=== PATIENT | female | born 1975 | race Caucasian/White ===

== ENCOUNTER 2019-05-26 12:24 | Emergency (ER) | payer OTHER, SELFPAY ==
[2019-05-26 12:30] VITALS: BP 117/71; PULSE 73; RESP 18; TEMP 37.4; O2SAT 98
--- NOTE | 2019-05-26 12:56 | ED.URI ---
HPI - URI/Sore Throat General Chief Complaint: Upper Respiratory Infection Stated Complaint: sore throat and headache Related Data Home Medications Medication Instructions Recorded Confirmed No Home Medications 05/26/19 05/26/19 Allergies Allergy/AdvReac Type Severity Reaction Status Date / Time bacitracin Allergy Severe rash Verified 05/26/19 12:48 neomycin Allergy Severe rash Verified 05/26/19 12:48 polymyxin B Allergy Severe rash Verified 05/26/19 12:48 povidone-iodine Allergy Intermediate HIVES Verified 05/26/19 12:48 povidone Allergy Unknown Rash Verified 05/26/19 12:48 soap Allergy Unknown Rash Verified 05/26/19 12:48 Betadine Surgical scrub Allergy Intermediate Unknown Uncoded 05/26/19 12:48 PMFSH Past Medical History Medical History (Updated 05/26/19 @ 13:00 by SHAWNA Min) Acid reflux Anemia Encounter for gynecological examination (general) (routine) without abnormal findings Surgical History Surgical History H/O dilation and curettage H/O vaginal hysterectomy bilateral salpingectomy History of ankle surgery History of breast lump removal [place] teeth removed Social History Social History Smoking status: Never smoker Second hand tobacco smoke exposure: No Alcohol intake: never Course Vital Signs Vital signs: Vital Signs Temperature 37.4 C 05/26/19 12:30 Pulse Rate 73 05/26/19 12:30 Respiratory Rate 18 05/26/19 12:30 Blood Pressure 117/71 05/26/19 12:30 Pulse Oximetry 98 05/26/19 12:30 Temperature 37.4 C 05/26/19 12:30 Pulse Rate 73 05/26/19 12:30 Respiratory Rate 18 05/26/19 12:30 Blood Pressure 117/71 05/26/19 12:30 Pulse Oximetry 98 05/26/19 12:30 MDM - URI/Sore Throat Lab Data Labs: Influenza A Screen Negative Reference Range: Negative Influenza B Screen Negative Reference Range: Negative Strep Screen Presumptive Negative *(Reference Range: Negative)* Discharge Plan Discharge Clinical Impression: Upper respiratory infection, Viral infection Patient Disposition: Home, Self-Care Condition: Stable Instructions: Antibiotic Form Additional Instructions: *Throw away your current toothbrush and begin using a new toothbrush in 48 hours in order to prevent re-infection. If anyone else's toothbrush is stored near yours, they should also throw away their current toothbrush and begin using a new one. *Sanitize all reusable water bottles. *Do not share items with others. *Wash your hands often. Supportive care/Soothing measures/Pain relief: *Avoid cigarette smoke (including secondhand smoke) *Avoid acidic foods and beverages *Eat a soft diet for the next 3-4 days *Salt water gargles may alleviate some of the throat discomfort. Most recipes call for ? to ? teaspoon of salt per 8 ounces (approximately 240 mL) of warm water. *You can take tylenol or ibuprofen per the package instructions for pain/fever. *Sipping cold or warm beverages (eg, tea with honey or lemon) *Eat cold or frozen desserts (eg, ice cream, popsicles) *Sucking on ice *Sucking on hard candy Viruses are everywhere and can spread like wildfire. Sx can last up to 3-4 weeks. Treatment is aimed toward your specific symptoms. You must treat your symptoms in order to feel better while the virus runs it's course. Increase fluids especially water. Do not share items with others. You can take Tylenol or ibuprofen per the package instructions for pain/fever. Wash your hands as often as possible. Purchase and begin using an over the counter antihistamine/decongestant combo such as Zyrtec D, Debbie D, Claritin D as well as Flonase nasal spray per the package instructions. Salt water gargles may alleviate some of your throat discomfort. Go to the ER if your symptoms become worse of i
--- NOTE | 2019-06-03 09:34 | ED.GENADULT ---
HPI - General Adult General Chief complaint: Upper Respiratory Infection Stated complaint: sore throat and headache Source: patient and family History of Present Illness HPI narrative: Patient presents with a sore throat no trouble swallowing no drooling. Related Data Home Medications Medication Instructions Recorded Confirmed No Home Medications 05/26/19 05/26/19 Allergies Allergy/AdvReac Type Severity Reaction Status Date / Time bacitracin Allergy Severe rash Verified 05/26/19 12:48 neomycin Allergy Severe rash Verified 05/26/19 12:48 polymyxin B Allergy Severe rash Verified 05/26/19 12:48 povidone-iodine Allergy Intermediate HIVES Verified 05/26/19 12:48 povidone Allergy Unknown Rash Verified 05/26/19 12:48 soap Allergy Unknown Rash Verified 05/26/19 12:48 Betadine Surgical scrub Allergy Intermediate Unknown Uncoded 05/26/19 12:48 Review of Systems Review of Systems: Narrative: CONSTITUTIONAL: Denies chills, or sweats. Reports fever and generalized body aches EYES: Denies visual changes, redness, or discharge. ENT: Denies otalgia. Reports nasal congestion runny nose and sore throat CARDIOVASCULAR: Denies chest pain, palpitations, or edema. RESPIRATORY: Denies dyspnea. Reports occasional cough GASTROINTESTINAL: Denies abdominal pain, nausea, vomiting, or diarrhea. GENITOURINARY: Denies dysuria or hematuria. SKIN: Denies rash or itching. MUSCULOSKELETAL: Denies back pain, joint pain, or myalgia. Reports generalized body aches NEUROLOGIC: Denies headache, numbness, or weakness. PSYCHIATRIC: Denies anxiety or depression. [facility] Past Medical History Medical History Acid reflux Anemia Encounter for gynecological examination (general) (routine) without abnormal findings Surgical History Surgical History H/O dilation and curettage H/O vaginal hysterectomy bilateral salpingectomy History of ankle surgery History of breast lump removal [place] teeth removed Social History Social History Smoking status: Never smoker Second hand tobacco smoke exposure: No Alcohol intake: never Comments At time of signature, agree with nursing past medical, surgical, social and family history. There is no relevant family history pertinent to the presenting complaint Exam Narrative: Exam Narrative: The patient is a well-developed, well-nourished in no acute distress. SKIN: Skin is warm and dry without erythema, swelling or exudate. There is good turgor. No tenting. HEAD: Atraumatic. Normocephalic. No temporal or scalp tenderness. EYES: Moist and bright. Sclera and conjunctivae normal. No discharge. PERRLA. Extraocular motions intact. Gross visual acuity intact. EARS: Pinna is normal shape and contour. Clear external auditory canals. TM pearly miller with good cone of light, no erythema or suppuration. Bilateral cerumen noted no gross hearing deficit. NOSE: pink, moist mucosa with good air movement. Clear rhinorrhea without nasal flaring. Septum midline. Mouth: moist mucous membranes. THROAT; mild erythema noted to posterior oropharynx with moderate postnasal drainage. Without exudate or ulceration.. Uvula midline. Normal movement of soft palate. NECK: Supple and nontender with full range of motion without discomfort. No meningeal signs. LUNGS: Equal and bilateral breath sounds without wheezes, rales or rhonchi. CHEST: The chest wall is without retractions or use of accessory muscles. HEART: Has a regular rate and rhythm without murmur, gallops, click or rub. ABDOMEN: Soft, nontender with positive active bowel sounds. No rebound tenderness. EXTREMITIES: Without cyanosis, clubbing or edema. Equal 2+ distal pulses and 2 second capillary refill noted. NEUROLOGIC: alert, active, . The patient moves all extremities with normal muscle strength. Normal muscle tone is noted. Normal
== END 2019-05-26 13:00 | disposition home or self-care (01) ==
PROVIDERS: Emergency Provider Nurse Practitioner Family
DX: J06.9 Acute upper respiratory infection, unspecified (principal); B34.9 Viral infection, unspecified; K21.9 Gastro-esophageal reflux disease without esophagitis
CPT/HCPCS: 87081; 87804; 87880; 99213; G0463

== ENCOUNTER 2019-12-21 10:56 | Emergency (ER) | payer OTHER, SELFPAY ==
[2019-12-21 11:00] VITALS: BP 134/89; PULSE 71; RESP 18; TEMP 37.5; O2SAT 99
--- NOTE | 2019-12-21 11:12 | ED.GENADULT ---
HPI - General Adult General Chief complaint: Extremity Injury, Lower Stated complaint: left leg pain/numbness Time Seen by Provider: 12/21/19 11:13 Source: patient and RN notes reviewed Mode of arrival: ambulatory Limitations: no limitations History of Present Illness HPI narrative: 44-year-old female presents with complaints of left posterior thigh pain for the past 2 days. Ibuprofen 600mg last this morning at 06:45 with little relief. Currently on no medications. No known injury. Intermitting radiation of pain from LT buttock to knee. No numbness or tingling or bleeding. No swelling. No loss of mobility. Exacerbating factor consist of bearing weight to leg. Denies recent travel or long car rides. History of DVT or PE. No chest pain or dyspnea. LMP Hysterectomy 2017. Remains active. The patient reports she have not been diagnosed with COVID-19. The patient reports she is not waiting for the results of a COVID-19 lab test. The patient reports she do not have fever, chills, weakness, or fatigue. The patient reports she do not have a new or worsening cough or shortness of breath. The patient reports she do not have any rhinorrhea, congestion, loss of taste, sore throat, nausea, vomiting, abdominal pain, and diarrhea. Tolerating po intake well. Denies recent traveling. Denies concerns for COVID-19 or exposures been home with limited outdoor exposure except for essential household needs, student, and return home. At this time, patient is not suspected of having COVID-19. Some parts of this dictation were generated by voice recognition software and may contain typographical and/or grammatical inaccuracies. Related Data Home Medications Medication Instructions Recorded Confirmed No Home Medications 05/26/19 12/21/19 Allergies Allergy/AdvReac Type Severity Reaction Status Date / Time bacitracin Allergy Severe rash Verified 12/21/19 11:11 neomycin Allergy Severe rash Verified 12/21/19 11:11 polymyxin B Allergy Severe rash Verified 12/21/19 11:11 povidone-iodine Allergy Intermediate HIVES Verified 12/21/19 11:11 povidone Allergy Unknown Rash Verified 12/21/19 11:11 soap Allergy Unknown Rash Verified 12/21/19 11:11 Betadine Surgical scrub Allergy Intermediate Unknown Uncoded 05/26/19 12:48 Review of Systems Review of Systems: Narrative: CONSTITUTIONAL: Denies fever, chills, sweats. EYES: Denies visual changes, redness, discharge. ENT: Denies rhinorrhea, congestion, sore throat, otalgia. CARDIOVASCULAR: Denies chest pain, palpitations, edema. RESPIRATORY: Denies dyspnea, wheezing, cough. GASTROINTESTINAL: Denies abdominal pain, nausea, vomiting, diarrhea. GENITOURINARY: Denies dysuria, hematuria, abnormal discharge SKIN: Denies rash or itching. MUSCULOSKELETAL: Denies acute back pain or myalgia. Complains of left posterior thigh pain. NEUROLOGIC: Denies numbness or focal weakness. PSYCHIATRIC: Denies anxiety or depression. All other systems reviewed & are unremarkable except as noted in HPI and below. [facility] Past Medical History Medical History Acid reflux Anemia Encounter for gynecological examination (general) (routine) without abnormal findings Surgical History Surgical History H/O dilation and curettage H/O vaginal hysterectomy bilateral salpingectomy History of ankle surgery History of breast lump removal [place] teeth removed Social History Social History Smoking status: Never smoker Second hand tobacco smoke exposure: No Alcohol intake: never Comments At time of signature, agree with nurse past medical, surgical, social, and family history. There is no relevant family history pertinent to the presenting complaint. Exam Narrative: Exam Narrative: GENERAL: This is a well-nourished, well-developed patient, in no apparen
== END 2019-12-21 11:40 | disposition home or self-care (01) ==
PROVIDERS: Emergency Provider Nurse Practitioner Family
DX: S76.912A Strain of unspecified muscles, fascia and tendons at thigh level, left thigh, initial encounter (principal); K21.9 Gastro-esophageal reflux disease without esophagitis
CPT/HCPCS: 99213; G0463

== ENCOUNTER 2020-08-23 13:56 | Emergency (ER) | payer OTHER, SELFPAY ==
[2020-08-23 14:00] VITALS: BP 139/87; PULSE 72; RESP 16; TEMP 37.1; O2SAT 100
--- NOTE | 2020-08-23 14:07 | ED.EYEPROB ---
HPI - Eye Problem General Chief complaint: Eye Problems Stated complaint: left eye swollen Time Seen by Provider: 08/23/20 14:07 Source: patient and RN notes reviewed History of Present Illness HPI Narrative: Patient is a 44-year-old female who presents the urgent care with complaints of left eye irritation. Patient states that it started 5 days ago and she has been taking Zyrtec. Patient states that just continues to have clear drainage and cause more irritation . Patient denies of any injury or trauma to the eye. No other acute complaints. No acute distress noted. Patient aware of the plan of care. Some parts of this dictation were generated by voice recognition software and may contain typographical and/or grammatical inaccuracies. Related Data Allergies Allergy/AdvReac Type Severity Reaction Status Date / Time bacitracin Allergy Severe rash Verified 08/23/20 14:04 neomycin Allergy Severe rash Verified 08/23/20 14:04 polymyxin B Allergy Severe rash Verified 08/23/20 14:04 povidone-iodine Allergy Intermediate HIVES Verified 08/23/20 14:04 povidone Allergy Unknown Rash Verified 08/23/20 14:04 soap Allergy Unknown Rash Verified 08/23/20 14:04 Betadine Surgical scrub Allergy Intermediate Unknown Uncoded 08/23/20 14:04 Review of Systems Review of Systems: Narrative: CONSTITUTIONAL: Denies fever, chills, or sweats. EYES: Denies visual changes. Reports of redness and clear drainage from the left eye ENT: Denies rhinorrhea, congestion, sore throat, or otalgia. CARDIOVASCULAR: Denies chest pain, palpitations, or edema. RESPIRATORY: Denies cough or dyspnea. GASTROINTESTINAL: Denies abdominal pain, nausea, vomiting, or diarrhea. GENITOURINARY: Denies dysuria or hematuria. SKIN: Denies rash or itching. MUSCULOSKELETAL: Denies back pain, joint pain, or myalgia. NEUROLOGIC: Denies headache, numbness, or weakness. All other systems reviewed are negative, except as documented in HPI. [facility] Past Medical History Medical History (Updated 08/23/20 @ 14:16 by SHAWNA Conner) Acid reflux Anemia Encounter for gynecological examination (general) (routine) without abnormal findings Surgical History Surgical History H/O dilation and curettage H/O vaginal hysterectomy bilateral salpingectomy History of ankle surgery History of breast lump removal Previous section x3 [place] teeth removed Social History Social History (Updated 07/08/20 @ 08:39 by Kemi Kahn [facility]) Smoking status: Never smoker Second hand tobacco smoke exposure: No Alcohol intake: never Substance use: never Comments At the time of my signature, I reviewed and agree with the nursing past medical, surgical, social, and family history. There is no relevant family history pertinent to the patient complaint. Exam Narrative: Exam Narrative: GENERAL: This is a well-nourished, well-developed patient, in no apparent distress. HEAD: normocephalic, atraumatic. EYES: PERRL. Sclera clear/white. Vision is grossly intact. Mild irritation/erythema noted to the outer left canthus/upper eyelid with clear drainage. No notable injury or obvious foreign body EARS: External ears normal, auditory canals clear and without drainage, TMs normal without perforation. Hearing grossly intact. NOSE: External nose normal with no obvious nasal discharge, nares without redness, no rhinorrhea. THROAT: Mucous membranes moist NECK: Neck supple CARDIOVASCULAR: Regular rate and rhythm without murmurs, gallops, or rubs. RESPIRATORY: Clear to auscultation. Breath sounds equal bilaterally. No wheezes, rales, or rhonchi. SKIN: warm, intact with no suspicious lesions or rash, good texture and turgor. NEURO: awake, alert, and oriented to person, place and time. There were no obvious focal neurologic abnormalities. EXTREMITIES: No clubbing, cyanosis, or edema. Course Vital Signs Vital signs: Vital Signs
== END 2020-08-23 14:20 | disposition home or self-care (01) ==
PROVIDERS: Emergency Provider Nurse Practitioner Family
DX: H57.89 Other specified disorders of eye and adnexa (principal); K21.9 Gastro-esophageal reflux disease without esophagitis
CPT/HCPCS: 99213; G0463

== ENCOUNTER 2020-11-05 09:30 | Emergency (ER) | payer OTHER, SELFPAY ==
--- NOTE | ~2020-11-05 | XR_ITS ---
EXAMINATION: XR chest 2V DATE: 11/05/2020 10:14 INDICATION: Cough, COVID positive TECHNIQUE: PA and lateral views of the chest are obtained. COMPARISON: 09/21/2020 FINDINGS: The lungs are free of acute opacities. There is no pleural effusion or pneumothorax. The ca rdiomediastinal silhouette is normal. There is mild thoracic spondylosis. Surgical clips in the right upper quadrant are likely from prior cholecystectomy. IMPRESSION: 1. No acute cardiopulmonary abnormality. Reviewed, dictated and finalized at location A.
[2020-11-05 09:36] VITALS: BP 125/80; PULSE 99; RESP 20; TEMP 37.1; O2SAT 100
[2020-11-05 09:45] VITALS: BP 125/80; PULSE 99; RESP 20; TEMP 37.1; O2SAT 100
--- NOTE | 2020-11-05 10:02 | ED.URI ---
HPI - URI/Sore Throat General Chief Complaint: Upper Respiratory Infection Stated Complaint: Coughing, fever, congestion, sore Throat Time Seen by Provider: 11/05/20 09:42 Source: patient and RN notes reviewed Mode of arrival: ambulatory Limitations: no limitations History of Present Illness HPI Narrative: Patient presents today complaining of a 2-day history of headache, sore throat, cough, congestion, postnasal drip, watery eyes and sneezing, with fever up to 102 since last night with shortness of breath. Patient has been taking Benadryl and ibuprofen with some mild relief. She has been vaccinated against COVID-19. Denies any history of asthma. She is a non-smoker. 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 Patient also complaining of dysuria and low back pain x2 days.. MD elicited complaint: fever and cough Related Data Allergies Allergy/AdvReac Type Severity Reaction Status Date / Time bacitracin Allergy Severe rash Verified 11/05/20 09:44 neomycin Allergy Severe rash Verified 11/05/20 09:44 polymyxin B Allergy Severe rash Verified 11/05/20 09:44 povidone-iodine Allergy Intermediate HIVES Verified 11/05/20 09:44 povidone Allergy Unknown Rash Verified 11/05/20 09:44 soap Allergy Unknown Rash Verified 11/05/20 09:44 Betadine Surgical scrub Allergy Intermediate Unknown Uncoded 11/05/20 09:44 Review of Systems Review of Systems: CONSTITUTIONAL: Denies body aches, chills, or sweats.+ Fever EYES: Denies visual changes, redness, or discharge. ENT: Denies rhinorrhea, or otalgia.+ Sore throat, congestion, postnasal drip, sneezing, ear pressure CARDIOVASCULAR: Denies chest pain, palpitations, or edema. RESPIRATORY: + Cough, shortness of breath GASTROINTESTINAL: Denies abdominal pain, nausea, vomiting, or diarrhea. GENITOURINARY: Denies hematuria. + Dysuria SKIN: Denies rash, itching, or wounds. MUSCULOSKELETAL: Denies back pain, joint pain, or myalgia. NEUROLOGIC: Denies numbness, tingling, or weakness.+ Headache PSYCH: Denies depression or anxiety. [facility] Past Medical History Medical History Acid reflux Anemia Encounter for gynecological examination (general) (routine) without abnormal findings Surgical History Surgical History H/O dilation and curettage H/O vaginal hysterectomy bilateral salpingectomy History of ankle surgery History of breast lump removal Previous section x3 [place] teeth removed Social History Social History Smoking status: Never smoker Second hand tobacco smoke exposure: No Alcohol intake: never Substance use: never Gender identity (if verbalized by the patient): Female Comments At time of signature, I have reviewed and agree with nursing past medical, surgical, social and family history unless otherwise noted. Please see nursing chart for further information. There is no relevant family history pertinent to the presenting complaint Exam Narrative: GENERAL: Well-appearing, well-nourished, and in no acute distress. HEAD: Normocephalic, atraumatic. EYES: EOMI. No redness or drainage. Conjunctivae normal. ENT: Mucous membranes pink and moist. Nares clear. No rhinorrhea. TMs normal bilaterally. Throat normal. Uvula midline. NECK: Normal AROM. Supple. No lymphadenopathy. CHEST: No respiratory distress. Rhonchi in the right upper lobe. Diminished in the bilateral bases. HEART: Regular rate and rhythm. No murmur appreciated. Normal peripheral pulses. ABDOMEN: Soft, nontender, nondistended, normal active bowel sounds. MUSCULOSKELETAL: No bony tenderness. EXTREMITIES: Normal range of motion. No edema. SKIN: Warm, dry, no rash. Capillary refill normal. Normal skin turgor. NEURO: No focal deficits. Alert and oriented x3. Gait steady. PSYCH:
== END 2020-11-05 10:37 | disposition home or self-care (01) ==
PROVIDERS: Emergency Provider Nurse Practitioner
DX: U07.1 COVID-19 (principal); N30.01 Acute cystitis with hematuria; K21.9 Gastro-esophageal reflux disease without esophagitis
CPT/HCPCS: 71046; 81003; 87077; 87086; 87088; 87426; 99213; C9803; G0463

== ENCOUNTER 2020-12-15 14:52 | Emergency (ER) | payer OTHER, SELFPAY ==
[2020-12-15 14:56] VITALS: BP 148/86; PULSE 88; RESP 20; TEMP 37.2; O2SAT 99
--- NOTE | 2020-12-15 15:03 | ED.SKABFB ---
HPI - Skin/Abscess/Foreign Bdy General Chief complaint: Extremity Injury, Lower Stated complaint: ingrown toenail Time Seen by Provider: 12/15/20 15:03 Source: patient and RN notes reviewed History of Present Illness HPI narrative: Patient is a 45-year-old female who presents the urgent care with complaints of an ingrown toenail to the right great toe. Patient states that she started having pain approximately 2 weeks ago but started to pick at it approximately 2 days ago and has been having some increased redness, swelling and drainage. Patient states she has been using bacitracin and taking ibuprofen for the pain. Denies any fever, chills, nausea, vomiting. No other acute complaints. No acute distress noted. Patient aware of the plan of care. Some parts of this dictation were generated by voice recognition software and may contain typographical and/or grammatical inaccuracies. Related Data Allergies Allergy/AdvReac Type Severity Reaction Status Date / Time neomycin Allergy Severe rash Verified 12/15/20 15:06 polymyxin B Allergy Severe rash Verified 12/15/20 15:06 povidone-iodine Allergy Intermediate HIVES Verified 12/15/20 15:06 povidone Allergy Unknown Rash Verified 12/15/20 15:06 Betadine Surgical scrub Allergy Intermediate Unknown Uncoded 11/05/20 09:44 Review of Systems Review of Systems: CONSTITUTIONAL: Denies fever, chills, or sweats. EYES: Denies visual changes, redness, or discharge. ENT: Denies rhinorrhea, congestion, sore throat, or otalgia. CARDIOVASCULAR: Denies chest pain, palpitations, or edema. RESPIRATORY: Denies cough or dyspnea. GASTROINTESTINAL: Denies abdominal pain, nausea, vomiting, or diarrhea. GENITOURINARY: Denies dysuria or hematuria. SKIN: Reports of redness, swelling/ingrown toenail to the right great toe MUSCULOSKELETAL: Denies back pain, joint pain, or myalgia. NEUROLOGIC: Denies headache, numbness, or weakness. All other systems reviewed are negative, except as documented in HPI. [facility] Past Medical History Medical History Acid reflux Anemia Encounter for gynecological examination (general) (routine) without abnormal findings Surgical History Surgical History H/O dilation and curettage H/O vaginal hysterectomy bilateral salpingectomy History of ankle surgery History of breast lump removal Previous section x3 [place] teeth removed Social History Social History Smoking status: Never smoker Second hand tobacco smoke exposure: No Alcohol intake: never Substance use: never Gender identity (if verbalized by the patient): Female Comments At the time of my signature, I reviewed and agree with the nursing past medical, surgical, social, and family history. There is no relevant family history pertinent to the patient complaint. Exam Narrative: GENERAL: This is a well-nourished, well-developed patient, in no apparent distress. HEAD: normocephalic, atraumatic. EYES: PERRL. Sclera clear/white. Vision is grossly intact. EARS: External ears normal NOSE: External nose normal with no obvious nasal discharge, nares without redness, no rhinorrhea. THROAT: Mucous membranes moist NECK: Neck supple CARDIOVASCULAR: Regular rate and rhythm without murmurs, gallops, or rubs. RESPIRATORY: Clear to auscultation. Breath sounds equal bilaterally. No wheezes, rales, or rhonchi. GASTROINTESTINAL: Abdomen soft, non-tender, nondistended. Bowel sounds are active. No hepato-splenomegaly, or palpable masses. No guarding. SKIN: Draining paronychia to the lateral aspect of the right great toe with surrounding erythema and edema. Warm, intact with no suspicious lesions or rash, good texture and turgor. NEURO: awake, alert, and oriented to person, place and time. There were no obvious focal neurologic abnormalities. EXTREMIT
== END 2020-12-15 15:12 | disposition home or self-care (01) ==
PROVIDERS: Emergency Provider Nurse Practitioner Family
DX: L03.031 Cellulitis of right toe (principal); K21.9 Gastro-esophageal reflux disease without esophagitis
CPT/HCPCS: 99213; G0463

== ENCOUNTER 2021-01-16 08:07 | Outpatient (CLI) | payer OTHER, SELFPAY ==
--- NOTE | ~2021-01-16 | MM_ITS ---
EXAMINATION: MM screening braden BI w milan HISTORY: Screening mammogram TECHNIQUE: Craniocaudal and mediolateral oblique 3-D tomosynthesis images were obtained and synthetic 2-D images were generated. CAD analysis was submitted and interpreted. COMPARISON: 06/03/2018, 04/08/2017 bilateral digital screening mammogram examinations BREAST PARENCHYMAL COMPOSITION: There are scattered areas of fibroglandular density. FINDINGS: There is no evidence of suspicious mass, calcification, or architectural distortion to sugg est malignancy in either breast. There has been no suspicious interval change. IMPRESSION: 1. No mammographic evidence of malignancy. 2. Recommend routine screening mammography in one year. BI-RADS Category 1: Negative Reviewed, dictated and finalized at location A.
== END 2021-01-16 08:08 | disposition home or self-care (01) ==
LOC: ANHIMG 08:08
PROVIDERS: Visit Provider Student in an Organized Health Care Education/Training Program
DX: Z12.31 Encounter for screening mammogram for malignant neoplasm of breast (principal)
CPT/HCPCS: 77063; 77067

== ENCOUNTER 2022-02-08 00:13 | Day surgery (SDC) | payer OTHER, SELFPAY ==
[2022-01-26 14:41] VITALS: BMI 31.4
--- NOTE | 2022-02-07 14:57 | P.PNAN_ITS ---
Anes - Initial Pre Proc Eval Procedure: Operation Date: 02/08/22 07:30 Proposed Procedures p Screening Colonoscopy - Darrell Quick MD Date/Time: 02/07/22 14:57 Surgeon: Darrell Quick MD Pre Op Diagnosis: neoplasm screening Patient Data Age: 46 Gender: F Height: 1.57 m Weight: 78 kg Allergies Allergy/AdvReac Type Severity Reaction Status Date / Time bacitracin Allergy Unknown Rash Verified 02/08/22 06:27 [From Neosporin ([id number])] neomycin Allergy Unknown Rash Verified 02/08/22 06:27 [From Neosporin ([id number]-eae-[id number])] polymyxin B Allergy Unknown Rash Verified 02/08/22 06:27 [From Neosporin ([id number])] povidone-iodine Allergy Unknown rash Verified 02/08/22 06:27 [From Betadine] Patient hx anesthesia problems: none Family hx anesthesia problems: none Results Review: All pre-operative results and documents have been reviewed as part of the pre- operative evaluation. PMFSH Past Medical History Medical History (Updated 02/07/22 @ 14:58 by Kevin Santos MD) Migraines Obesity Surgical History Surgical History (Updated 12/11/21 @ 16:57 by Sal Goddard MD) History of cholecystectomy History of hysterectomy no oophrectomy Hx of bladder repair surgery s/p pelvic fx Status post delivery x3 Family History Family History (Updated 12/11/21 @ 16:58 by Sal Goddard MD) Father Brain cancer Mother Breast cancer Hypertension Social History Social History Smoking status: Never smoker Alcohol intake: current Substance use: never Living arrangements: with family Gender identity (if verbalized by the patient): Female Spiritual care concerns: No Anes - Eval Final PreProcedure Day of Procedure 02/07/22 14:57 Patient weight: obese Heart: regular rate and rhythm Lungs: clear to auscultation and normal air movement Airway: Mallampati scale class II Neurological: alert and oriented Last oral intake: >/= 8 hours ASA classification: II Emergent: no Anesthetic plan: proceed Anesthesia type and monitoring: general GIVS Results Review: All pre-operative results and documents have been reviewed as part of the pre- operative evaluation. Informed Consent: The patient's anesthetic plan and its attendant risks and benefits were discussed with the patient/family/POA. Questions were solicited and answers provided to the satisfaction of the patient/family/POA.
[2022-02-08 06:22] VITALS: BP 131/88; PULSE 78; RESP 18; TEMP 36.3; O2SAT 100; BMI 32.3
[2022-02-08] MEDS: LACTATED RINGERS 1,000 ML 150 ML IV CONT (06:35)
--- NOTE | 2022-02-08 07:13 | P.HP_ITS ---
History of Present Illness History of Present Illness Consent: Risks, benefits, and alternatives have been discussed and questions answered. Patient agrees to proceed with procedure. Chief complaint: neoplasm screening Narrative: Sadaf Begum is a 46 year old female Presents for screening colonoscopy. Patient's current weight appetite and bowel movements are normal. Patient denies abdominal pain. She has had no bleeding. Family history is significant that her mother had colon polyps. She has had 2 grandparents with colon cancer. Review of Systems Review of Systems: Review of systems noncontributory. [facility] Past Medical History Medical History (Updated 02/08/22 @ 07:14 by Darrell Quick MD) Migraines Obesity Surgical History Surgical History (Updated 12/11/21 @ 16:57 by Sal Goddard MD) History of cholecystectomy History of hysterectomy no oophrectomy Hx of bladder repair surgery s/p pelvic fx Status post delivery x3 Family History Family History (Updated 12/11/21 @ 16:58 by Sal Goddard MD) Father Brain cancer Mother Breast cancer Hypertension Social History Social History Smoking status: Never smoker Alcohol intake: current Substance use: never Living arrangements: with family Gender identity (if verbalized by the patient): Female Spiritual care concerns: No Meds Home Medications and Allergies Allergies Allergy/AdvReac Type Severity Reaction Status Date / Time bacitracin Allergy Unknown Rash Verified 02/08/22 06:27 [From Neosporin ([id number])] neomycin Allergy Unknown Rash Verified 02/08/22 06:27 [From Neosporin ([id number])] polymyxin B Allergy Unknown Rash Verified 02/08/22 06:27 [From Neosporin ([id number])] povidone-iodine Allergy Unknown rash Verified 02/08/22 06:27 [From Betadine] Exam Narrative: Physical exam reveals patient to be alert. Vital signs stable. HEENT exam is unremarkable. Patient is anicteric. Lungs are clear to auscultation and percussion. Heart is without murmur or extra sounds. Abdomen bowel sounds present soft nontender with no organomegaly. Digital external rectal exam is normal. Assessment and Plan Assessment and plan (1) Family history of colonic polyps: Code(s): Z83.71 - Family history of colonic polyps Status: Acute Assessment and Plan: Patient has a family history of colon polyps in her mother colon cancer in 2 grandparents. Plan for surveillance colonoscopy now and consider this at 5 year intervals in the future.
[2022-02-08] MEDS: SIMETHICONE ORAL SUSPENSION 20 MG/0.3 ML 30 ML BOTTLE 0.6 ML IRRIGATION (07:38)
[2022-02-08 07:50] VITALS: BP 94/63; PULSE 74; RESP 22; O2SAT 98
[2022-02-08 08:00] VITALS: BP 105/75; PULSE 72; RESP 22; O2SAT 98
[2022-02-08 08:10] VITALS: BP 116/78; PULSE 64; RESP 19; O2SAT 99
== END 2022-02-08 08:15 | disposition home or self-care (01) ==
PROVIDERS: PCP Family Medicine; Visit Provider Internal Medicine Gastroenterology
PROC: 0DJD8ZZ Inspection of Lower Intestinal Tract, Via Natural or Artificial Opening Endoscopic (ICD-10-PCS; CPT 45378; principal; 2022-02-08 07:30)
DX: Z12.11 Encounter for screening for malignant neoplasm of colon (principal); Z83.71 Family history of colonic polyps; E66.9 Obesity, unspecified; Z68.32 Body mass index [BMI] 32.0-32.9, adult
CPT/HCPCS: 45378; J2704; J7120

== ENCOUNTER 2022-04-03 15:14 | Outpatient (CLI) | payer OTHER, SELFPAY ==
--- NOTE | ~2022-04-03 | MM_ITS ---
EXAMINATION: MM screening braden BI w milan HISTORY: Screening TECHNIQUE: Craniocaudal and mediolateral oblique 3-D tomosynthesis images were obtained and synthetic 2-D images were generated. CAD analysis was submitted and interpreted. COMPARISON: Comparison to multiple prior studies sequentially, with oldest reviewed study dated 04/08. BREAST PARENCHYMAL COMPOSITION: Breast composed of scattered areas of fibroglandular density FINDINGS: There is no evidence of suspicious mass, calcification, or architectural distortion to sugg est malignancy in either breast. There has been no suspicious interval change. IMPRESSION: 1. No mammographic evidence of malignancy. 2. Recommend routine screening mammography in one year. BI-RADS Category 1: Negative Reviewed, dictated and finalized at location A. RN TO SERVICE INSPECTOR
== END 2022-04-03 15:15 | disposition home or self-care (01) ==
PROVIDERS: PCP Family Medicine; Visit Provider Student in an Organized Health Care Education/Training Program
DX: Z12.31 Encounter for screening mammogram for malignant neoplasm of breast (principal)
CPT/HCPCS: 77063; 77067

== ENCOUNTER 2022-04-27 14:31 | Emergency (ER) | payer OTHER, SELFPAY ==
[2022-04-27 14:47] VITALS: BP 123/80; PULSE 71; RESP 16; TEMP 36.4; O2SAT 100
--- NOTE | 2022-04-27 15:05 | ED.FEMALEGU ---
HPI - Female Genitourinary General Chief complaint: Abdominal Pain Stated complaint: LOW BACK/STOMACH PAIN/NAUSEA Time Seen by Provider: 04/27/22 14:56 Source: patient Mode of arrival: ambulatory Limitations: no limitations History of Present Illness HPI Narrative: Patient presents today with a 2 day history of dysuria, urinary frequency with abdominal pain and low back pain that started yesterday and has been worsening since onset. She also started vomiting 2 hours prior to arrival. States she has lost count of how many times she has vomited. Denies fever. She took azo 2 hours prior to arrival. Related Data Allergies Allergy/AdvReac Type Severity Reaction Status Date / Time bacitracin Allergy Unknown Rash Verified 04/27/22 14:45 [From Neosporin ([id number])] neomycin Allergy Unknown Rash Verified 04/27/22 14:45 [From Neosporin ([id number]-[id number])] polymyxin B Allergy Unknown Rash Verified 04/27/22 14:45 [From Neosporin ([id number]-mbg-[id number])] povidone Allergy Unknown Rash Verified 04/27/22 14:45 povidone-iodine Allergy Unknown rash Verified 04/27/22 14:45 [From Betadine] Betadine Surgical scrub Allergy Intermediate Unknown Uncoded 04/27/22 14:45 Review of Systems Review of Systems: CONSTITUTIONAL: Denies body aches, fever, chills, or sweats. EYES: Denies visual changes, redness, or discharge. ENT: Denies rhinorrhea, congestion, sore throat, or otalgia. CARDIOVASCULAR: Denies chest pain, palpitations, or edema. RESPIRATORY: Denies cough or dyspnea. GASTROINTESTINAL: + abdominal pain, nausea, vomiting GENITOURINARY: + dysuria, frequency SKIN: Denies rash, itching, or wounds. MUSCULOSKELETAL: Denies joint pain, or myalgia.+ right low back pain NEUROLOGIC: Denies headache, numbness, tingling, or weakness. PSYCH: Denies depression or anxiety. PENDING SALE TO [facility] Past Medical History Medical History Acid reflux Anemia Encounter for gynecological examination (general) (routine) without abnormal findings Migraines Obesity Surgical History Surgical History H/O dilation and curettage H/O vaginal hysterectomy bilateral salpingectomy History of ankle surgery History of breast lump removal History of cholecystectomy History of hysterectomy no oophrectomy Hx of bladder repair surgery s/p pelvic fx Previous section x3 Status post delivery x3 [place] teeth removed Family History Family History Father Brain cancer Mother Breast cancer Hypertension Social History Social History Smoking status: Never smoker Second hand tobacco smoke exposure: No Alcohol intake: never Substance use: never Living arrangements: with family Occupation/Education: occupation Gender identity (if verbalized by the patient): Female Spiritual care concerns: No Comments At time of signature, I have reviewed and agree with nursing past medical, surgical, social and family history unless otherwise noted. Please see nursing chart for further information. There is no relevant family history pertinent to the presenting complaint Exam Narrative: GENERAL: Mildly ill-appearing, well-nourished, and in no acute distress. HEAD: Normocephalic, atraumatic. EYES: EOMI. No redness or drainage. Conjunctivae normal. ENT: Mucous membranes pink and moist. NECK: Normal AROM. CHEST: No respiratory distress. Clear to auscultation. HEART: Regular rate and rhythm. No murmur appreciated. ABDOMEN: Soft, nondistended, normal active bowel sounds.+ suprapubic tenderness.-CVAT MUSCULOSKELETAL: No bony tenderness. + right lower lumbar paraspinal muscle tenderness. EXTREMITIES: Normal range of motion. No edema. SKIN: Warm, dry, no rash. Capillary refill normal. Norm
[2022-04-27] MEDS: ONDANSETRON HCL ODT 4 MG TABLET SUBLINGUAL (15:08)
== END 2022-04-27 15:29 | disposition home or self-care (01) ==
PROVIDERS: Emergency Provider Nurse Practitioner; PCP Family Medicine
DX: N30.00 Acute cystitis without hematuria (principal); K21.9 Gastro-esophageal reflux disease without esophagitis; E66.9 Obesity, unspecified; Z68.32 Body mass index [BMI] 32.0-32.9, adult
CPT/HCPCS: 81003; 87086; 99213; A9270; G0463

== ENCOUNTER 2022-05-18 09:18 | Emergency (ER) | payer OTHER, SELFPAY ==
--- NOTE | ~2022-05-18 | CT_ITS ---
EXAMINATION: CT abdomen pelvis wo con DATE: 05/18/2022 10:40 INDICATION: Right flank and lower quadrant pain TECHNIQUE: Computed tomography (CT) of the abdomen and pelvis was performed without intravenous contr ast. The dose-length product was 659.31 mGy-cm. Automated exposure control and iterative reconstructi on technique were employed. COMPARISON: None. FINDINGS: Lung bases unremarkable. Heart size normal. No significant pleural or pericardial effusion. There is hepatomegaly. Focal calcification noted in the liver, nonspecific. Spleen, pancreas, adrena l glands and left kidney are unremarkable. There is right hydroureteronephrosis secondary to a 4 mm d istal right ureteral stone. There is a 5.1 cm right adnexal cyst, likely ovarian. Nonobstructive andrea l gas pattern. No significant vascular abnormality. No lymphadenopathy. Status post cholecystectomy. IMPRESSION: 1. Distal right ureteral stone measuring 4 mm with mild right hydronephrosis. 2: Right adnexal cyst measuring 5.1 cm, likely ovarian. 3: Hepatomegaly. Reviewed, dictated and finalized at location B. UNLOADER
[2022-05-18 09:18] VITALS: BP 131/86; PULSE 85; RESP 16; TEMP 36.6; O2SAT 100
--- NOTE | 2022-05-18 09:33 | ED.ABDPAIN ---
HPI - Abdominal Pain General Chief Complaint: Abdominal Pain Stated Complaint: lower back pain and vomiting Time Seen by Provider: 05/18/22 09:33 Source: patient and RN notes reviewed Mode of arrival: ambulatory Limitations: no limitations History of Present Illness HPI narrative: patient states that she had a similar episode 2 weeks ago went to urgent care had a urinalysis that was apparently normal was given an antibiotic anyway. She then had similar episode that is started this morning at 3:00 a.m. she has been nonstop vomiting nausea. MD elicited complaint: abdominal pain Onset (ago): hour(s) (6) Pain Consistency: constant Location: RLQ and R flank Severity: severe Quality: stabbing and sharp Migration to: no migration Exacerbating factors: eating Relieving factors: nothing Associated symptoms: nausea and vomiting Related Data Allergies Allergy/AdvReac Type Severity Reaction Status Date / Time bacitracin Allergy Unknown Rash Verified 05/18/22 09:36 [From Neosporin ([id number])] neomycin Allergy Unknown Rash Verified 05/18/22 09:36 [From Neosporin ([id number]-[id number])] polymyxin B Allergy Unknown Rash Verified 05/18/22 09:36 [From Neosporin ([id number])] povidone Allergy Unknown Rash Verified 05/18/22 09:36 povidone-iodine Allergy Unknown rash Verified 05/18/22 09:36 [From Betadine] Betadine Surgical scrub Allergy Intermediate Unknown Uncoded 05/18/22 09:36 Review of Systems Review of Systems: All systems reviewed & are unremarkable except as noted in HPI and below Constitutional: Constitutional: Reports chills and Denies fever(s) PMFSH Past Medical History Medical History Acid reflux Anemia Encounter for gynecological examination (general) (routine) without abnormal findings Migraines Obesity Surgical History Surgical History H/O dilation and curettage H/O vaginal hysterectomy bilateral salpingectomy History of ankle surgery History of breast lump removal History of cholecystectomy History of hysterectomy no oophrectomy Hx of bladder repair surgery s/p pelvic fx Previous section x3 Status post delivery x3 [place] teeth removed Family History Family History Father Brain cancer Mother Breast cancer Hypertension Social History Social History Smoking status: Never smoker Second hand tobacco smoke exposure: No Alcohol intake: never Substance use: never Living arrangements: with family Occupation/Education: occupation Gender identity (if verbalized by the patient): Female Spiritual care concerns: No Exam Const: General: healthy appearing, no acute distress and alert Nutritional Appearance: well nourished Orientation/consciousness: patient oriented x3 Limitations: no limitations Other: female nurse in room during examination. HENMT: Head: normal to inspection Ears: external ears normal Eyes: Conjunctivae: conjunctivae normal Pupils: Equal, round and reactive pupils present EOM: EOMs intact bilaterally Neck: Neck: normal visual inspection Resp: Effort & Inspection: normal respiratory effort Auscultation: clear to auscultation bilaterally Cardio: Rate: regular rate Rhythm: regular rhythm GI: GI Palp: Yes Soft to palpation, Yes Tenderness to palpation present (GI) ( Mild right lower quadrant) and Yes Guarding due to palpation present (GI) ( mild right lower quadrant) Auscultation: normal bowel sounds Back/Spine/Pelvis: Back: CVA tenderness ( moderate right flank) Cervical Spine: cervical ROM normal Thoracic/Lumbar Spine: thoraco-lumbar ROM normal Skin: General skin exam: normal color Rashes: no rashes Neuro: General: patient oriented x3, moves all extremities, no focal motor deficits a
[2022-05-18] MEDS: ONDANSETRON HCL ODT 4 MG TABLET PO (09:53)
[2022-05-18] MEDS: KETOROLAC 30 MG/ML VIAL (*BKC) IM (09:54)
[2022-05-18 09:57] LABS: Basophils Absolute Auto 0.02 K/mm3 (0.00-0.10); Basophils Percent Auto 0.2 % (0.0-1.0); Hematocrit 38.2 % (35.0-49.0); Immature Granulocyte Absolute 0.04 K/mm3 (0.00-0.00); Immature Granulocyte Percent A 0.4 % (0.0-0.0); Lymphocytes Percent Auto 8.6 % (18.0-42.0); Mean Corpuscular Hemoglobin 30.7 pg (27.0-31.0); Mean Corpuscular Volume 90.1 fL (78.0-102.0); Mean Platelet Volume 11.3 fl (9.2-11.8); Monocytes Absolute Auto 0.18 K/mm3 (0.10-0.90); Monocytes Percent Auto 1.9 % (2.0-11.0); Neutrophils Absolute Auto 8.3 K/mm3 (1.7-7.2); Neutrophils Percent Auto 88.9 % (50.0-70.0); Platelet Count Result 207 K/mm3 (150-420); Red Blood Count 4.24 M/mm3 (4.20-5.40); Red Cell Distribution Width 11.9 % (11.6-14.4); White Blood Count 9.4 K/mm3 (4.8-10.8)
[2022-05-18 10:03] LABS: Appearance Urine Clear (Clear); Bilirubin Urine Negative (Negative); Blood Urine 2+ (Negative); Color Urine Yellow (Yellow); Glucose Urine UA Negative (Negative); Ketones Urine 2+ (Negative); Leukocyte Esterase Ur Negative LEU/UL (Negative); Nitrate Urine Negative (Negative); Protein Urine Trace (Negative); Specific Grav Ur >= 1.030 (1.010-1.020); Urobilinogen Urine 0.2 mg/dL (0.2-1.0)
[2022-05-18 10:11] LABS: CRP < 0.5 mg/dL (0.0-0.9)
[2022-05-18 10:14] LABS: Alanine Aminotransferase 25 U/L (14-59); Albumin Level 4.3 g/dL (3.4-5.0); Alkaline Phosphatase 52 U/L (46-116); Anion Gap 9 mmol/L (8-16); Aspartate Amino Transferase 19 U/L (15-37); Bilirubin,Total 0.7 mg/dL (0.00-1.00); Blood Urea Nitrogen 14 mg/dL (7-18); Carbon Dioxide 26 mmol/L (21-32); Chloride 107 mmol/L (98-108); Estimated CRCL calculation 80 ml/min; Estimated Glomerular Filt Rate > 60; Glucose 132 mg/dL (70-99); Lipase 22 U/L (16-77); Osmolality Calculated 296 mOsm/kg (285-295); Potassium 4.1 mmol/L (3.5-5.1); Sodium 142 mmol/L (136-145); Total Protein 7.6 g/dL (6.4-8.2)
[2022-05-18 10:16] LABS: Add Urine Microscopic? YES; Squamous Epithelial Cell Urine Few /hpf (Few); WBC Urine None seen /hpf (0-3)
[2022-05-18 10:17] LABS: Bacteria Urine 1+ /hpf; Mucus Urine Moderate /lpf
[2022-05-18 10:18] VITALS: BP 132/63; PULSE 76; RESP 18; O2SAT 98
[2022-05-18 11:21] VITALS: BP 140/88; PULSE 90; RESP 18; TEMP 36.7; O2SAT 98
== END 2022-05-18 11:24 | disposition home or self-care (01) ==
PROVIDERS: Emergency Provider Emergency Medicine; PCP Family Medicine
DX: N13.2 Hydronephrosis with renal and ureteral calculous obstruction (principal)
CPT/HCPCS: 36415; 74176; 80053; 81001; 83605; 83690; 85025; 86140; 96372; 99284; A9270; J1885

== ENCOUNTER 2023-05-10 09:10 | Outpatient (CLI) | payer BC, SELFPAY ==
[2023-05-10 10:08] LABS: Influenza A QL RT-PCR Negative (Negative); Influenza B QL RT-PCR Negative (Negative); RSV RNA, RT-PCR Negative (Negative); SARS-CoV-2 RNA PCR Negative (Negative)
== END 2023-05-10 09:11 | disposition home or self-care (01) ==
LOC: ANHLAB 09:14
PROVIDERS: PCP Family Medicine; Visit Provider Physician Assistant
DX: R05.9 Cough, unspecified (principal); R50.9 Fever, unspecified; Z20.822 Contact with and (suspected) exposure to COVID-19
CPT/HCPCS: 87637

== ENCOUNTER 2023-05-31 10:14 | Outpatient (CLI) | payer BC, SELFPAY ==
--- NOTE | ~2023-05-31 | XR_ITS ---
Clinical Indication: Cough PA and lateral views of the chest: Comparison: 11/05/2020 Findings: The lungs are clear, without evidence of focal consolidation or pleural effusion. Cardiome diastinal silhouette is within normal limits. Bones and soft tissues are unremarkable. Impression: Normal chest. Reviewed, dictated and finalized at [facility]. ANALYST Impression: Normal chest.
== END 2023-05-31 10:15 | disposition home or self-care (01) ==
LOC: ANHIMG 10:17
PROVIDERS: PCP Family Medicine; Visit Provider Physician Assistant
DX: R05.9 Cough, unspecified (principal)
CPT/HCPCS: 71046

== ENCOUNTER 2023-10-11 22:07 | Emergency (ER) | payer BC, SELFPAY ==
[2023-10-11 22:11] VITALS: BP 139/74; PULSE 69; RESP 18; TEMP 36.4; O2SAT 98
[2023-10-12 00:17] VITALS: BP 127/75; PULSE 84; RESP 18; O2SAT 98
== END 2023-10-12 00:20 | disposition left against medical advice (07) ==
LOC: ANHED 10-12 03:49
PROVIDERS: PCP Family Medicine
DX: R10.31 Right lower quadrant pain (principal)
CPT/HCPCS: 99199

== ENCOUNTER 2023-10-12 01:23 | Emergency (ER) | payer BC, SELFPAY ==
--- NOTE | ~2023-10-12 | CT_ITS ---
EXAMINATION: CT abdomen pelvis wo con DATE: 10/12/2023 02:00 INDICATION: Possible kidney stones. Right flank pain. TECHNIQUE: Computed tomography (CT) of the abdomen and pelvis was performed without intravenous contr ast. The dose-length product was 526.84 mGy-cm. Automated exposure control and iterative reconstructi on technique were employed. COMPARISON: CT dated 05/18/2022. FINDINGS: Lung bases unremarkable. Heart size normal. No significant pleural or pericardial effusion. Status post cholecystectomy. There is a liver cyst. The spleen, pancreas, adrenal glands and kidneys are unremarkable. Nonobstructive bowel gas pattern. There is a 5.3 cm right adnexal mass which may r epresent ovarian cyst or exophytic uterine fibroid. Correlation with ultrasound recommended. Nonobstr uctive bowel gas pattern. IMPRESSION: 1. Right adnexal lesion measuring 5.3 cm which is central low density, ovarian cyst versus exophytic uterine fibroid. Recommend correlation with pelvic ultrasound. Reviewed, dictated and finalized at location B. IMPRESSION: 1. Right adnexal lesion measuring 5.3 cm which is central low density, ovarian cyst versus exophytic uterine fibroid. Recommend correlation with pelvic ultras ound.
[2023-10-12 01:26] VITALS: BP 133/74; PULSE 73; RESP 18; TEMP 36.5; O2SAT 99
--- NOTE | 2023-10-12 01:45 | ED.ABDPAIN ---
HPI - Abdominal Pain General Chief Complaint: Abdominal Pain Stated Complaint: abdominal pain Time Seen by Provider: 10/12/23 01:34 Source: patient Mode of arrival: ambulatory History of Present Illness HPI narrative: patient is a 47-year-old female with significant past medical history presents today with abdominal pain and bilateral flank pain. Patient states she has had kidney stones in the past and the bilateral flank pain does feel like kidney stones. However she has not had any dysuria or increased urinary frequency or any GI symptoms. She denies any hematuria. New abdominal pain is in the right lower quadrant and has been bothering her since morning. The flank pain has been bothering her for the last 2 weeks. She does not have her appendix and she does not have her gallbladder. MD elicited complaint: abdominal pain and flank pain Onset (ago): day(s) Pain Consistency: intermittent Location: RLQ Severity: mild Quality: cramping Exacerbating factors: movement Relieving factors: nothing Associated symptoms: denies other symptoms Related Data Patient : No Home Medications Medication Instructions Recorded Confirmed Multi-Vitamin See Rx Instructions .Route .COMPLEX 10/12/23 10/12/23 Allergies Allergy/AdvReac Type Severity Reaction Status Date / Time bacitracin Allergy Unknown Rash Verified 05/16/23 08:22 [From Neosporin ([id number])] neomycin Allergy Unknown Rash Verified 05/16/23 08:22 [From Neosporin ([id number])] polymyxin B Allergy Unknown Rash Verified 05/16/23 08:22 [From Neosporin ([id number])] povidone Allergy Unknown Rash Verified 05/16/23 08:22 povidone-iodine Allergy Unknown rash Verified 05/16/23 08:22 [From Betadine] Betadine Surgical scrub Allergy Intermediate Unknown Uncoded 05/16/23 08:22 Review of Systems Review of Systems: All systems reviewed & are unremarkable except as noted in HPI and below Constitutional: Constitutional: Reports as per HPI Eyes: Eyes: Reports no additional eye complaints ENT: Reports system reviewed and no additional complaints, except as documented Cardiovascular: Cardiovascular: Reports no additional cardiovascular complaints Respiratory: Respiratory: Reports no additional respiratory complaints Gastrointestinal: Gastrointestinal: Reports no additional gastrointestinal complaints Genitourinary: Genitourinary: Reports as per HPI Musculoskeletal: Musculoskeletal: Reports no additional musculoskeletal complaints Integumentary/Breasts: Skin/Breast: Reports system reviewed and no additional complaints, except as docu Neurologic: Reports system reviewed and no additional complaints, except as documented Psychiatric: Psychiatric: Reports no additional psychiatric complaints Endocrine: Endocrine: Reports no additional endocrine complaints Hematologic/Lymphatic: Hematologic/Lymphatic: Reports no additional hematologic/lymphatic complaints Allergic/Immunologic: Allergic/Immunologic: Reports no additional allergic/immunologic complaints PMFSH Past Medical History Medical History Acid reflux Anemia Calculus of right ureter Encounter for gynecological examination (general) (routine) without abnormal findings Migraines Obesity Surgical History Surgical History H/O dilation and curettage H/O vaginal hysterectomy bilateral salpingectomy History of ankle surgery History of breast lump removal History of cholecystectomy History of hysterectomy no oophrectomy Hx of bladder repair surgery s/p pelvic fx Previous section x3 Status post delivery x3 [place] teeth removed Family History Family History Father Brain cancer Mother Breast cancer Hypertension Social History Social History (Reviewed 10/12/23 @ 01:51 by Seth
--- NOTE | 2023-10-12 01:49 | PC.NURSE ---
patient being transported to ct via wheel chair
[2023-10-12 01:52] LABS: Appearance Urine Clear (Clear); Bilirubin Urine Negative (Negative); Blood Urine Negative (Negative); Color Urine Yellow (Yellow); Glucose Urine UA Negative (Negative); Ketones Urine Negative (Negative); Leukocyte Esterase Ur Negative LEU/UL (Negative); Nitrate Urine Negative (Negative); Protein Urine Negative (Negative); Specific Grav Ur >= 1.030 (1.010-1.020); Urobilinogen Urine 0.2 mg/dL (0.2-1.0)
[2023-10-12 01:54] LABS: Add Urine Microscopic? NO
[2023-10-12 02:03] LABS: Basophils Absolute Auto 0.04 K/mm3 (0.00-0.10); Basophils Percent Auto 0.6 % (0.0-1.0); Eosinophils Absolute Auto 0.03 K/mm3 (0.02-0.50); Eosinophils Percent Auto 0.5 % (1.0-6.0); Hematocrit 38.5 % (35.0-49.0); Hemoglobin 12.7 g/dL (12.0-15.0); Immature Granulocyte Absolute 0.01 K/mm3 (0.00-0.00); Immature Granulocyte Percent A 0.2 % (0.0-0.0); Lymphocytes Absolute Auto 1.97 K/mm3 (1.10-4.50); Lymphocytes Percent Auto 31.7 % (18.0-42.0); Mean Corpuscular Hemoglobin 30.2 pg (27.0-31.0); Mean Corpuscular Volume 91.7 fL (78.0-102.0); Mean Platelet Volume 10.9 fl (9.2-11.8); Monocytes Absolute Auto 0.46 K/mm3 (0.10-0.90); Monocytes Percent Auto 7.4 % (2.0-11.0); Neutrophils Absolute Auto 3.71 K/mm3 (1.70-7.20); Neutrophils Percent Auto 59.6 % (50.0-70.0); Platelet Count Result 213 K/mm3 (150-420); Red Cell Distribution Width 11.9 % (11.6-14.4); White Blood Count 6.2 K/mm3 (4.8-10.8)
[2023-10-12] MEDS: SODIUM CHLORIDE 0.9% IV 1,000 ML 999 ML IV CONT (02:03)
[2023-10-12] MEDS: KETOROLAC 30 MG/ML VIAL (*BKC) IV PUSH (02:04)
[2023-10-12 02:20] LABS: Alanine Aminotransferase 56 U/L (14-59); Albumin Level 3.7 g/dL (3.4-5.0); Alkaline Phosphatase 62 U/L (46-116); Anion Gap 7 mmol/L (4-12); Aspartate Amino Transferase 30 U/L (15-37); Bilirubin,Total 0.4 mg/dL (0.00-1.00); Blood Urea Nitrogen 13 mg/dL (7-18); Calcium 8.6 mg/dL (8.5-10.1); Carbon Dioxide 27 mmol/L (21-32); Chloride 106 mmol/L (98-108); Estimated CRCL calculation 82 ml/min; Estimated Glomerular Filt Rate > 60; Glucose 104 mg/dL (70-99); Lipase 34 U/L (16-77); Osmolality Calculated 290 mOsm/kg (285-295); Potassium 3.8 mmol/L (3.5-5.1); Sodium 140 mmol/L (136-145); Total Protein 6.7 g/dL (6.4-8.2)
[2023-10-12 02:28] LABS: Lactic Acid Reflex 1.9 mmol/L (0.4-2.0)
--- NOTE | 2023-10-12 02:39 | PC.NURSE ---
patient is resting quietly on stretcher with family at her side. awaiting ct results. call light in reach
--- NOTE | 2023-10-12 03:25 | PC.NURSE ---
notified dr ghosh that ct report was back
[2023-10-12 03:48] VITALS: BP 132/93; PULSE 73; RESP 18; O2SAT 98
== END 2023-10-12 03:48 | disposition home or self-care (01) ==
PROVIDERS: Emergency Provider Family Medicine; PCP Family Medicine
DX: D25.9 Leiomyoma of uterus, unspecified (principal); R10.31 Right lower quadrant pain
CPT/HCPCS: 36415; 74176; 80053; 81003; 83605; 83690; 85025; 96361; 96374; 99284; J1885; J7030

== ENCOUNTER 2024-01-23 10:07 | Outpatient (CLI) | payer OTHER, SELFPAY ==
--- NOTE | ~2024-01-23 | MM_ITS ---
EXAMINATION: MM screening braden BI w milan HISTORY: Screening mammogram, family history of breast cancer in her mother. TECHNIQUE: Craniocaudal and mediolateral oblique 3-D tomosynthesis images were obtained and synthetic 2-D images were generated. CAD analysis was submitted and interpreted. COMPARISON: 04/03/2022, 01/16/2021 BREAST PARENCHYMAL COMPOSITION:Not Dense. There are scattered areas of fibroglandular density. FINDINGS: No suspicious mass, calcification, or architectural distortion are identified in either meena ast to suggest malignancy. There has been no suspicious interval change. IMPRESSION: No mammographic evidence of malignancy. Recommend routine screening mammography in one year. BI-RADS Category 1: Negative Reviewed, dictated and finalized at location .
== END 2024-01-23 10:08 | disposition home or self-care (01) ==
PROVIDERS: PCP Student in an Organized Health Care Education/Training Program; Visit Provider Obstetrics & Gynecology
DX: Z12.31 Encounter for screening mammogram for malignant neoplasm of breast (principal)
CPT/HCPCS: 77063; 77067